=== PATIENT | male | born 1940 | race Caucasian/White ===

== ENCOUNTER 2017-01-23 17:21 | Emergency (ER) | payer MEDICARE ==
[~2017-01-23] VITALS: Ht 177.8 cm; Wt 83.1 kg
[2017-01-23 17:23] VITALS: BP 103/66; PULSE 52; RESP 17; O2SAT 97
--- NOTE | 2017-01-23 18:01 | ED.REPORT ---
HPI-General Illness Date of Service Jan 23, 2017 ED Provider: Jefe Lezama MD The patient is a 76 year old male who presents to the ED via EMS due to left hip pain after he bent over to tie his shoe [employer]. Pt heard a "pop" when he bent over and believes he dislocated his hip. He dislocated his hip once before 10 years ago, a week after surgery. Nursing Notes Stated Complaint: DISLOCATED LEFT HIP Chief Complaint: Extremity Trauma Nursing Notes Reviewed: Yes Allergies: Coded Allergies: No Known Allergies (Unverified , 01/23/17) General Time Seen by MD: 18:00 Chief Complaint Other (left hip pain) Hx Obtained From: Patient Arrived By: Ambulance Sudden in Onset?: Yes Onset Occurred: Just prior to arrival Symptom Duration: Since onset Location: : Hip left Quality: Painful Severity: Current: Moderate Recent Healthcare: No recent doctor visit, No recent hospitalization Similar Sx Previous: No Past Medical History Past Medical History denies Past Surgical History bilateral hip replacement right shoulder surgery glaucoma right knee acl replacement Smoking History Unknown if Ever Smoker Social History lives in [place], primary care with [facility], no orthopedist at present Alcohol Use: "Social" Other Social History: Good social support, Ambulatory Status Independent Review of Systems Full Review of Systems Musculoskeletal: Reports: Extremity pain, Extremity swelling, Joint pain, Joint swelling Neurologic: Reports: Problem walking, Denies: Change LOC, Confusion, Dizziness, Headache, Lightheaded, Numbness, Syncope Complete sys rev & neg: except as marked. Physical Exam Malampati score 2 Vital Signs Vital Signs Date Time Temp Pulse Resp B/P Pulse Ox O2 Delivery O2 Flow Rate FiO2 01/23/17 20:45 51 22 129/73 98 01/23/17 17:23 36.8 52 17 103/66 97 Room Air Initial VS: Reviewed General/Constitutional: Awake, Alert, Cooperative Head / Eyes: Atraumatic, Normocephalic, PERRL, EOMI ENT: Atraumatic, Airway patent Respiratory / Chest: Atraumatic, Breath sounds NL, Breath sounds = bilat, No respiratory distress Cardiovascular: Heart rate NL, Regular rhythm, Heart sounds NL, No gallop, No murmurs, No rubs Lower Extremity / Pelvis / MS: Neurologic intact Left Hip: Positive: Tenderness present..., Unable to bear weight left leg flexed at knee pulses are intact Skin: Atraumatic, Color NL, No rash Neurologic: Oriented X3, Speech NL, No motor deficits Interpretation & Diagnostics X-Ray Interpretation Xray Interpretation: IMPRESSION: Posterior left hip dislocation. Dictated by: Kelly Marinelli M.D. on 01/23/2017 at 18:56 Approved by: Kelly Marinelli M.D. on 01/23/2017 at 18:56 X-Ray Ordered: Hip left Interpretation / Wet Read by: Interpret - Radiologist Procedures Proced Mod Sedation/Analgesia Time: 19:00 Procedure Performed by: ED physician Sedation Time: 16 - 30 min Consent / Setup: Informed consent provided, Consent from patient, Hand hygiene observed, Stand sterile technique, Position supine Indication: Hip reduction Preparation: radiation monitor applied, Pulse oximeter applied, Constant attendance, IV access established, Supplemental oxygen, Procedure explained VS Prior to Procedure: All vital signs normal Sedation: Sedation: Propofol Response During Procedure: Maintained airway well, Oxygenation stable, Sedation appropriate, Vital signs stable Mental Status After Procedure: Alert, Oriented X3, At patient's baseline Post-Procedure: Vital signs normal Reduction Post Dislocation Hip Time: 19:10 Procedure Performed by: ED physician Consent / Timeout / Setup: Informed consent provided, Consent from patient, Oxygen administered, radiation monitor applied, Hand hygiene observed, Stand sterile technique Procedural Sedation/Analgesia: Sedation: Propofol Which Hip and Technique: Left hip, Allis technique Neurovascular: Not intact pre-procedure Post-Procedure / Complications: Reduced per examination, Procedure successful, X-ray disloc reduced, Condition improved, Tolerated procedure well, Patient stable Re-Eval/Medical Decision Time of Eval: 19:21 Patient Status: Condition improved Re-Evaluation/Progress Note: Reduction post dislocation hip performed. Procedure was successful and pt tolerated procedure well. Time of Eval: 20:03 Patient Status: Condition improved, Pain improved Re-Evaluation/Progress Note: Pt rechecked. Pt is improved. Counseled Regarding: Diagnosis, Lab results, Need for follow-up, When/why to return to ED Discharge & Departure Primary Impression: Hip dislocation, left Encounter type: initial encounter Qualified Code: S73.005A - Unspecified dislocation of left hip, initial encounter Disposition: Home Discharge Condition All VS Reviewed: Yes Condition: Stable Patient Instructions: Hip Dislocation (ED) Additional Instructions: Thank you for entrusting us with your care today. Emergency Department evaluation included interview, examination, and left hip x-ray. Your x-ray showed that you dislocated your hip. We performed a reduction in the Emergency Room which was successful. Take Ibuprofen and Tylenol as needed for pain. Ice may also be helpful, keep ice from contact with skin. Be cautious in positioning leg and use a pillow between legs for sleep. 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 Return to the Emergency Department if you experience any new or worsening symptoms. No driving tonight as we gave sedating medications Referrals: [facility] Scribe Attestation Portion of this note were transcribed by Latisha Martinez. I, Dr. Lezama, personally performed the history, physical exam, and medical decision-making: I reviewed and confirmed the accuracy for the information in the transcribed note. Signed by: brittni Jc, 01/23/17 2000 copies to: [facility] Jefe Lezama MD Jan 23, 2017 18:01 Latisha Martinez Jan 23, 2017 18:08
[2017-01-23] MEDS: HYDROmorphone 1 mg/mL Inj IVPUSH PRN ×2 (18:15→19:00)
--- NOTE | 2017-01-23 18:58 | DRSVH ---
PROCEDURE: X-RAY LEFT HIP COMPLETE, MINIMUM TWO VIEWS ([id number]) INDICATIONS: possible hip dislocation TECHNIQUE: 2 views of the hip were acquired. COMPARISON: None. FINDINGS: Bones: There is a posterior dislocation of the left hip prosthesis. Soft tissues: No suspicious soft tissue calcifications or masses. IMPRESSION: Posterior left hip dislocation. Dictated by: Kelly Marinelli M.D. on 01/23/2017 at 18:56 Approved by: Kelly Marinelli M.D. on 01/23/2017 at 18:56
[2017-01-23] MEDS ORDERED: Propofol 10 mg/mL 20 mL Inj ONE (19:02)
[2017-01-23] MEDS ORDERED: Propofol 10,000 mCg/mL 20 mL Inj IV PRN (19:05)
[2017-01-23] MEDS ORDERED: Propofol 10 mg/mL 20 mL Inj IV PRN (19:13)
--- NOTE | 2017-01-23 19:52 | DRSVH ---
PROCEDURE: X-RAY PELVIS, ONE OR TWO VIEWS ([id number]) INDICATIONS: POST REDUCTION TECHNIQUE: Single view(s) of the pelvis acquired. COMPARISON: None. FINDINGS: Bones: The left hip arthroplasty dislocation has been successfully reduced. Soft tissues: A small bone fragment is present within the soft tissues. IMPRESSION: Successful left hip arthroplasty reduction. Small bone fragment in the soft tissues may r epresent heterotopic ossification versus small acute fracture fragment. Dictated by: Kelly Marinelli M.D. on 01/23/2017 at 19:49 Approved by: Kelly Marinelli M.D. on 01/23/2017 at 19:50
[2017-01-23 20:45] VITALS: BP 129/73; PULSE 51; RESP 22; O2SAT 98
== END 2017-01-23 20:30 | disposition home or self-care (01) ==
LOC: EDBD 17:21 → SED 17:21
DX: T84.021A Dislocation of internal left hip prosthesis, initial encounter (principal); X50.9XXA Other and unspecified overexertion or strenuous movements or postures, initial encounter; Y93.9 Activity, unspecified; Y92.9 Unspecified place or not applicable; Y99.8 Other external cause status
CPT/HCPCS: 27265; 72170; 73502; 94799; 96374; 96376; 99152; 99153; 99285; J1170